=== PATIENT | female | born 1960 | race Two or more races ===

== ENCOUNTER 2021-08-28 09:17 | Emergency (ER) | payer MEDICAID, OTHER ==
[~2021-08-28] VITALS: Ht 157.5 cm; Wt 68.0 kg
[2021-08-28 09:18] VITALS: BP 150/84
[2021-08-28] MEDS ORDERED: KETOROLAC TROMETH 60MG/2ML VIAL IM ONE (09:45)
[2021-08-28] MEDS ORDERED: METH750T22 PO (10:18)
[2021-08-28] MEDS ORDERED: IBUP800T27 PO (10:18)
== END 2021-08-28 10:25 | disposition home or self-care (01) ==
LOC: ER 09:17
DX: M50.10 Cervical disc disorder with radiculopathy, unspecified cervical region (principal); F17.210 Nicotine dependence, cigarettes, uncomplicated; Z90.49 Acquired absence of other specified parts of digestive tract
CPT/HCPCS: 72040; 96372; 99283; J1885